=== PATIENT | male | born 1945 | race Asian ===

== ENCOUNTER 2019-05-14 19:49 | Inpatient (IN) | payer OTHER ==
[~2019-05-14] VITALS: Ht 172.7 cm; Wt 39.0 kg
[2019-05-14 20:01] VITALS: Ht 172.7 cm; Wt 39.0 kg
[2019-05-14 20:55] LABS: BASOPHIL % 0 % (0-2); PLATELET COUNT 237 x10^3mcL (130-400); RED CELL DISTRIBUTION WIDTH 15.4 % (11.5-14.5)
[2019-05-14 21:06] LABS: CALCIUM 9.4 mg/dL (8.5-10.1); CARBON DIOXIDE 34.1 mmol/L (21-32); CHLORIDE SERUM 98 mmol/L (98-107); GLUCOSE SERUM 195 mg/dL (74-106); POTASSIUM SERUM 4.7 mmol/L (3.5-5.1); SODIUM SERUM 138 mmol/L (136-145)
[2019-05-14 21:12] LABS: ALBUMIN 3.5 g/dL (3.4-5.0); ALKALINE PHOSPHATASE 74 U/L (46-116); ALT/SGPT 19 U/L (16-63); AST/SGOT 20 U/L (15-37); BILIRUBIN TOTAL 0.9 mg/dL (0.20-1.00); TOTAL PROTEIN, SERUM 7.1 g/dL (6.4-8.2)
[2019-05-14 21:23] LABS: LIPASE 11970 IU/L (73-393)
[2019-05-14] MEDS ORDERED: FINASTERIDE1 MG PO (21:51)
[2019-05-14] MEDS ORDERED: TAMSULOSIN HCL0.4 MG PO (21:51)
[2019-05-14] MEDS ORDERED: ANORO ELLIPTA1 POW IH (21:52)
[2019-05-14 22:23] LABS: T3 TOTAL 0.66 ng/mL
[2019-05-14 22:29] LABS: MAGNESIUM 1.9 mg/dL (1.8-2.4); PHOSPHOROUS 3.2 mg/dL (2.5-4.9)
[2019-05-14 22:49] LABS: CHOLESTEROL/HDL RATIO 1.9
[2019-05-14 23:12] VITALS: BP 122/76
[2019-05-14 23:12] LABS: FREE T4 1.51 ng/dL (0.76-1.46); FREE THYROXINE INDEX 4.1 ug/dL (1.4-4.5); T4(THYROXINE) 10.7 ug/dL (4.7-13.3)
[2019-05-15 05:21] VITALS: BP 117/70
[2019-05-15 07:18] LABS: BASOPHIL % 0.1 % (0-2); PLATELET COUNT 207 x10^3mcL (130-400)
[2019-05-15 07:38] LABS: CALCIUM 8.3 mg/dL (8.5-10.1); CARBON DIOXIDE 31.6 mmol/L (21-32); CHLORIDE SERUM 102 mmol/L (98-107); CREATININE SERUM 0.7 mg/dL (0.7-1.3); GLUCOSE SERUM 112 mg/dL (74-106); MAGNESIUM 1.9 mg/dL (1.8-2.4); PHOSPHOROUS 3.9 mg/dL (2.5-4.9); POTASSIUM SERUM 4.6 mmol/L (3.5-5.1); SODIUM SERUM 138 mmol/L (136-145)
[2019-05-15 07:48] VITALS: BP 103/63
[2019-05-15 08:42] LABS: LIPASE 4581 IU/L (73-393)
[2019-05-15 11:40] VITALS: BP 106/53
[2019-05-15 16:16] VITALS: BP 104/56
[2019-05-15 18:13] LABS: UA SPECIFIC GRAVITY >=1.030 (1.005-1.035); microscopic required? YES; urine erythrocyte TRACE (NEGATIVE)
[2019-05-15 18:27] LABS: AMPHETAMINE QUAL UR NONE DETECTED (See below)
== END 2019-05-15 20:50 | disposition short-term general hospital (02) | DRG 922 ==
LOC: ED 19:49 → DU 21:47
PROVIDERS: Emergency Medicine; ADMIT Family Medicine
DX: T66.XXXA Radiation sickness, unspecified, initial encounter (principal); K85.90 Acute pancreatitis without necrosis or infection, unspecified; E43 Unspecified severe protein-calorie malnutrition; C34.90 Malignant neoplasm of unspecified part of unspecified bronchus or lung; Q25.46 Tortuous aortic arch; Z68.1 Body mass index [BMI] 19.9 or less, adult; N40.0 Benign prostatic hyperplasia without lower urinary tract symptoms; Z90.2 Acquired absence of lung [part of]; Z87.891 Personal history of nicotine dependence; Y84.2 Radiological procedure and radiotherapy as the cause of abnormal reaction of the patient, or of later complication, without mention of misadventure at the time of the procedure; Y92.009 Unspecified place in unspecified non-institutional (private) residence as the place of occurrence of the external cause
CPT/HCPCS: 83880; 84439; 97112-GP; C9113; G0378; J2270; J2405; J3010; J7030; Q0092; Q0162